=== PATIENT | female | born 1980 | race Caucasian/White ===

== ENCOUNTER 2018-07-19 11:09 | Emergency (ER) | payer MEDICAID ==
[~2018-07-19] VITALS: Ht 215.9 cm; Wt 149.7 kg
[2018-07-19 11:18] VITALS: BP 126/76; Ht 215.9 cm; Wt 149.7 kg
== END 2018-07-19 12:36 | disposition home or self-care (01) ==
LOC: ED 11:09
DX: S93.402A Sprain of unspecified ligament of left ankle, initial encounter (principal); X50.1XXA Overexertion from prolonged static or awkward postures, initial encounter; Y93.89 Activity, other specified; Y92.89 Other specified places as the place of occurrence of the external cause; Y99.8 Other external cause status
CPT/HCPCS: Q0092